=== PATIENT | male | born 1980 | race Caucasian/White ===

== ENCOUNTER 2018-12-19 13:22 | Emergency (ER) | payer OTHER ==
[~2018-12-19] VITALS: Ht 177.8 cm; Wt 99.8 kg
[2018-12-19 13:38] VITALS: BP 142/96; Ht 177.8 cm; Wt 99.8 kg
== END 2018-12-19 16:10 | disposition home or self-care (01) ==
LOC: ED 13:22
DX: S59.901A Unspecified injury of right elbow, initial encounter (principal); S53.001A Unspecified subluxation of right radial head, initial encounter; X58.XXXA Exposure to other specified factors, initial encounter; Y93.89 Activity, other specified; Y92.89 Other specified places as the place of occurrence of the external cause; Y99.8 Other external cause status
CPT/HCPCS: J2270; Q0162